=== PATIENT | male | born 2000 | race Caucasian/White ===

== ENCOUNTER 2024-07-03 08:35 | Emergency (ER) | payer SELFPAY ==
[~2024-07-03] VITALS: Ht 182.9 cm; Wt 80.0 kg
[2024-07-03 08:37] VITALS: O2SAT 100
[2024-07-03] MEDS ORDERED: IBUP-2029 MT (09:25)
[2024-07-03 10:44] VITALS: BP 132/78; PULSE 68; RESP 16; TEMP 36.55848; O2SAT 100
== END 2024-07-03 10:36 | disposition home or self-care (01) ==
LOC: ER 08:35
DX: S60.212A Contusion of left wrist, initial encounter (principal); V49.49XA Driver injured in collision with other motor vehicles in traffic accident, initial encounter; Y93.89 Activity, other specified; Y92.89 Other specified places as the place of occurrence of the external cause; Y99.8 Other external cause status
CPT/HCPCS: 73090; 73100; 99284